=== PATIENT | male | born 1960 | race African-American/Black ===

== ENCOUNTER 2017-02-11 08:57 | Emergency (ER) | payer MEDICAID ==
[~2017-02-11] VITALS: Ht 185.4 cm; Wt 70.0 kg
[2017-02-11] MEDS ORDERED: BACITRACIN ZINC OINT UDPKT TOP ONE (14:45)
[2017-02-11] MEDS ORDERED: IBUPROFEN 600MG TABLET PO ONE (14:45)
[2017-02-11] MEDS ORDERED: LIDOCAINE HCL 1% 20ML VIAL (Pyxis) INJ MC ONE (14:45)
[2017-02-11 15:21] VITALS: BP 132/78
== END 2017-02-11 16:09 | disposition home or self-care (01) ==
LOC: ER 08:57
DX: L02.413 Cutaneous abscess of right upper limb (principal); Z88.8 Allergy status to other drugs, medicaments and biological substances
CPT/HCPCS: 10060; 99283; J3490; X7700; Z7610

== ENCOUNTER 2017-02-12 12:35 | Emergency (ER) | payer MEDICAID ==
[~2017-02-12] VITALS: Ht 185.4 cm; Wt 71.0 kg
[2017-02-12 13:32] VITALS: BP 116/78
== END 2017-02-12 23:45 | disposition left against medical advice (07) ==
LOC: ER 23:35
DX: Z53.21 Procedure and treatment not carried out due to patient leaving prior to being seen by health care provider (principal)